=== PATIENT | male | born 1955 | race Hispanic/Latino ===

== ENCOUNTER → 2019-06-15 | Outpatient (CLI) | payer BC | LOC: GMAE 10:50 | PROVIDERS: ATTEND Family Medicine | DX: Z00.00 Encounter for general adult medical examination without abnormal findings (principal) ==

== ENCOUNTER → 2019-12-15 | Outpatient (CLI) | payer BC ==
--- NOTE | 2019-12-16 14:42 | MRI ---
EXAM DESCRIPTION: Brain w/wo Contrast: Magnetic Resonance Imaging. CLINICAL HISTORY: HEARING LOSS COMPARISON: MRI scan of the brain June 2012. TECHNIQUE: Diffusion axial imaging of the brain. Multiplanar high-field unit, multiple conventional sequences through the IACs, and the brain, before and after 1 mL per 5 kg body weight Dotarem gadolinium IV contrast. No adverse reactions. FINDINGS: Normal signal in the IACs with no abnormal enhancement and no mass. No fluid in the mastoid air cells. Normal contour of the cerebellopontine angles with no mass, normal enhancement. Normal flow signal void in the major vessels of the [place] and venous sinuses. Paranasal sinuses are unremarkable. Pituitary gland occupies approximately 50% of the sella compartment. Bony calvarium is intact. Base of the cerebellar tonsils is at the level of the foramen magnum. Bilateral small foci of hyperintense FLAIR and T2-weighted signal in the periventricular white matter and dotson-white matter junctions of the cerebral hemispheres. No hemorrhage, no mass effect, no cerebral edema and no diffusion restriction. Normal signal in the bilateral basal ganglia. No hemorrhage, no cerebral edema, no mass-effect. Normal signal in the brainstem and cerebellar hemispheres. Concordance of the diffusion and non-diffusion sequences with no evidence of acute or subacute infarction. Cortical sulci, ventricles, and other CSF spaces, and the subdural spaces are normally definitive for patient's age.No effacement or displacement. No midline shift. No extra-axial hemorrhage. IMPRESSION: 1. No lesions and no abnormal enhancement in the cerebellopontine angles bilaterally or the inner ear structures. No hemorrhage or mass effect. No mastoiditis. No significant paranasal sinusitis. 2. Bilateral white matter changes most likely related to cerebral microvascular disease or age-related. Small pituitary gland but no mass. 3. Normal noncontrast MRI diffusion study with no evidence of significant ischemia or acute or subacute infarction.. Electronically signed by: Jamarcus Castro MD 12/16/2019 2:40 PM CDT
== END ==
LOC: MRI 13:37
PROVIDERS: ATTEND Family Medicine
DX: H90.41 Sensorineural hearing loss, unilateral, right ear, with unrestricted hearing on the contralateral side (principal); R90.82 White matter disease, unspecified; E23.6 Other disorders of pituitary gland